=== PATIENT | male | born 2000 | race Caucasian/White ===

== ENCOUNTER 2022-08-24 09:53 | Emergency (ER) | payer BC ==
[~2022-08-24] VITALS: Ht 167.6 cm; Wt 72.6 kg
[2022-08-24] MEDS ORDERED: DOXY100C5 PO (10:30)
[2022-08-24] MEDS ORDERED: CEFTRIAXONE 500 MG VIAL IM ONE (10:30)
[2022-08-24] MEDS ORDERED: PENICILLIN G BENZATHINE 2.4 MMU/4 ML DISP.SYRIN IM ONE ×2 (10:30→10:36)
[2022-08-24] MEDS ORDERED: CEFTRIAXONE 500 MG VIAL ONE (10:35)
[2022-08-24] MEDS ORDERED: PREP (10:50)
[2022-08-24] MEDS ORDERED: SERT50TA PO (10:50)
--- NOTE | 2022-08-24 10:51 | NUR ---
Patient discharged to home in stable condition. Written and verbal after care instructions given. Patient verbalizes understanding of instructions. Stressed follow up or return to ER for worsening s/s.
[2022-08-26 00:06] LABS: *TRIC.VAG. NAA Negative (Negative)
[2022-08-26 02:06] LABS: *GC NAA Negative (Negative)
== END 2022-08-24 10:52 | disposition home or self-care (01) ==
LOC: ER 09:53
DX: A64 Unspecified sexually transmitted disease (principal)
CPT/HCPCS: 99284; 96372 ×2; 87491; J0561; J0696; A4663